=== PATIENT | male | born 1975 | race Caucasian/White ===

== ENCOUNTER 2020-09-27 16:29 | Observation (INO) ==
[2020-09-27] MEDS ORDERED: ASPIRIN CHEW 324 MG PO STA (17:04)
[2020-09-27] MEDS ORDERED: METOPROLOL TARTRATE 1 MG/ML VIAL IV STA (17:04)
--- NOTE | 2020-09-27 17:12 | Emergency Department Note ---
Impression & Plan Precordial chest pain, Exertional chest pain, Abnormal ECG ED Provider Note NAME: ERWIN DONAHUE AGE: 45 SEX: M : 1975 ARRIVES VIA: Walk-In INFORMANT: [Patient] ED PROVIDER(S): [Guillermo Funez MD] CHIEF COMPLAINT: Chest pain HISTORY OF PRESENT ILLNESS: Patient is a 45-year-old male presents to the ED with complaints of some chest pain earlier today. Patient states that around 5 hours ago he developed 2/10 central chest pain without radiation. He was sitting at the time. The pain lasted about 20 to 30 minutes and then self resolved. He was not short of breath, there was no sweating or nausea. Patient went to his doctor's office today for a BP check. His BP was elevated. When he mentioned the chest pain, an EKG was done that showed some mild ST elevation over several leads. He was sent to the ED for work-up. He currently does not have any chest pain. Patient states that over the last 6 months he has noticed some left lateral chest discomfort with exertion. The pain resolves with rest and lasts maybe 5 or 10 minutes. Pain is rated as a 5/10. He is not sweaty with it. There is no nausea. He does feel lightheaded with the pain though. The patient has never had a diagnosis of coronary disease. He has never had his heart worked up. He quit smoking 1 year ago but had smoked 20+ years prior to quitting. He has a family history of early heart disease. REVIEW OF SYSTEMS: See HPI for pertinent positives and negatives. A total of ten systems were reviewed and were otherwise negative. PMHx/PSHx: See Below SOCIAL HISTORY: See Below. PHYSICAL EXAM: GENERAL: Patient is in no acute distress. HEENT: No acute trauma, normocephalic atraumatic, mucous membranes moist, no nasal congestion, no scleral icterus. NECK: No stridor, no adenopathy, no meningismus, trachea is midline. LUNGS: Clear to auscultation bilaterally, no wheeze, no rhonchi, breath sounds equal. HEART: Very subtle systolic murmur heard best at the right sternal border. Regular rate and rhythm. Chest: Nontender chest wall. ABDOMEN: Soft, nontender, bowel sounds positive, no hernias, no peritonitis. EXTREMITIES: No cyanosis or edema, full range of motion of all the joints without pain or difficulty, no signs for acute trauma. NEUROLOGIC: Oriented x 3, no acute motor or sensory deficits, no focal weakness. SKIN: No rash, no jaundice, no diaphoresis. DIFFERENTIAL DIAGNOSIS: Cardiac ischemia, aortic dissection, pulmonary embolism, pneumothorax, pneumonia, pericarditis, myocarditis, esophageal rupture, GERD, cholecystitis, pancreatitis, musculoskeletal, as well as other pathologies. EMERGENCY DEPARTMENT COURSE/PROCEDURES: ECG: Indication was chest pain. The ECG shows a normal sinus rhythm with a rate of 70. There is some subtle ST elevation in a few of the anterior leads however, this has the appearance of potential early repole. There are are no PVCs. The QTc is 401. Compared to an ECG done earlier today at his doctors office, the ST elevations appear improved and are less diffuse. Continuous Cardiac Monitoring: An order was placed for continuous cardiac monitoring. The monitor shows a rate of 82 with normal sinus rhythm. MEDICAL DECISION MAKING: There is no leukocytosis or concerning anemia. There is a normal platelet count. No significant electrolyte abnormality or kidney failure. No worrisome liver enzyme elevation. No evidence for pancreatitis. ECG shows a sinus rhythm, there were some subtle ST elevations thought more consistent with early repolarization than ischemia. Cardiac enzyme testing x1 is not consistent with acute cardiac injury. Chest film does not show pneumonia, mediastinal widening or pneumothorax. On exam, the patient was not toxic, he was not febrile. He was not having any chest pain. Of note, Covid testing returned negative. The patient received oral aspirin for cardioprotective purposes. He was given IV Lopressor to help control the heart rate and to help control his blood pressure. The patient is currently resting comfortably. I did discuss his case with cardiology. Hospitalization, enzyme trending and potential stress testing was recommended. The patient does have some cardiac risk factors. His heart score is around a 4 making him a moderate risk for cardiac complications. I spoke to the patient, I talked to case management. The on-call hospitalist has been consulted. Past Med/Surg History Medical History Depression History of alcohol abuse History of smoking Hypertension Family History Mother Myocardial infarction passed at 56 Father Myocardial infarction first at age 45, multiple CT and passed at 58 Diabetes Hypertension Heart disease CT with CHF Grandmother Cancer brain cancer, unclear ddx Aneurysm Uncle Colorectal cancer Other Coronary heart disease Denies family history of Asthma Social History Smoking Status: Former smoker Tobacco Type: Cigarettes Years Smoked: 20; Cigarettes Per Day: 60; Hx Alcohol Use: No Hx Substance Use: No Preferred Language: Irish Communication Ability: Effective Job Estimator Required: No Beliefs That Will Affect Care: None Current Living Situation: Family Feels Safe at Home: Yes caffeine: Yes (4 pots coffee daily) Assistive Devices: None Allergies Allergies Allergy/AdvReac Type Severity Reaction Status Date / Time Opioids - Morphine Analogues AdvReac Unknown Do not Verified 09/27/20 19:18 give per pt [id number] Allergy Unknown Unknown Uncoded 09/27/20 17:51 Home Meds Home Medications Medication Instructions Recorded Confirmed clonidine HCl 0.1 mg PO DAILY@199909/27/20 09/27/20 lisinopril 20 mg PO QAM 09/27/20 09/27/20 nicotine (polacrilex) 2 mg PO DIRECTED 09/27/20 09/27/20 sertraline 50 mg PO QAM 09/27/20 09/27/20 Previous Rx's Medication Instructions Recorded amlodipine 5 mg PO DAILY #30 tab 09/28/20 pantoprazole [Protonix] 40 mg PO QAM #30 tab 09/28/20 Results & Data (ED) Vital Signs Vital Signs - 24 hr 09/27/20 16:32 09/27/20 16:40 09/27/20 16:50 Temperature 36.8 C Temperature Source Temporal Artery Scan Pulse Rate 78 65 Pulse Rate [Apical] 71 Pulse Rate from SpO2 Sensor Pulse Rhythm Regular Pulse Rhythm [Apical] Pulse Strength [Apical] Respiratory Rate 18 18 19 Respiratory Effort / Characteristics Non-Labored Spontaneous Respiratory Depth Normal Respiratory Pattern Regular Blood Pressure 143/95 H Blood Pressure [Left Arm] 146/89 H Blood Pressure Mean 111 Blood Pressure Mean [Left Arm] 108 Blood Pressure Position Sitting Blood Pressure Position [Left Arm] Pulse Oximetry 96 97 98 Oxygen Delivery Method Room Air Room Air Room Air Sepsis Recent Fever Within 48 Hours No Sepsis New/Unexplained Change in Mental Status N/A Sepsis Action Taken by Nursing No Action Required 09/27/20 18:30 09/27/20 18:36 09/27/20 19:01 Temperature Temperature Source Pulse Rate Pulse Rate [Apical] 75 Pulse Rate from SpO2 Sensor 58 L 60 Pulse Rhythm Pulse Rhythm [Apical] Regular Pulse Strength [Apical] Normal Respiratory Rate 19 Respiratory Effort / Characteristics Non-Labored Spontaneous Respiratory Depth Normal Respiratory Pattern Blood Pressure 128/89 141/86 H Blood Pressure [Left Arm] 128/89 Blood Pressure Mean 102 104 Blood Pressure Mean [Left Arm] 102 Blood Pressure Position Blood Pressure Position [Left Arm] Lying Pulse Oximetry 97 97 98 Oxygen Delivery Method Room Air Room Air Room Air Sepsis Recent Fever Within 48 Hours Sepsis New/Unexplained Change in Mental Status Sepsis Action Taken by Nursing 09/27/20 19:02 09/27/20 19:30 09/27/20 19:40 Temperature Temperature Source Pulse Rate 73 Pulse Rate [Apical] Pulse Rate from SpO2 Sensor 60 Pulse Rhythm Pulse Rhythm [Apical] Pulse Strength [Apical] Respiratory Rate 17 Respiratory Effort / Characteristics Respiratory Depth Respiratory Pattern Blood Pressure 143/89 H Blood Pressure [Left Arm] Blood Pressure Mean 107 Blood Pressure Mean [Left Arm] Blood Pressure Position Blood Pressure Position [Left Arm] Pulse Oximetry 97 95 Oxygen Delivery Method Room Air Sepsis Recent Fever Within 48 Hours Sepsis New/Unexplained Change in Mental Status Sepsis Action Taken by Nursing 09/27/20 20:00 Temperature Temperature Source Pulse Rate 71 Pulse Rate [Apical] Pulse Rate from SpO2 Sensor Pulse Rhythm Pulse Rhythm [Apical] Pulse Strength [Apical] Respiratory Rate 18 Respiratory Effort / Characteristics Respiratory Depth Respiratory Pattern Blood Pressure 123/73 Blood Pressure [Left Arm] Blood Pressure Mean 89 Blood Pressure Mean [Left Arm] Blood Pressure Position Blood Pressure Position [Left Arm] Pulse Oximetry Oxygen Delivery Method Sepsis Recent Fever Within 48 Hours Sepsis New/Unexplained Change in Mental Status Sepsis Action Taken by Assisted Medications Current Medication List: was personally reviewed by me Laboratory Data Attestation: I reviewed the patient's lab results. Result diagrams: 09/28/20 05:47 09/28/20 05:47 Lab Results 09/27/20 09/27/20 09/27/20 Range/Units 16:46 16:46 19:38 WBC 6.44 (4.8-10.8) K/uL RBC 4.99 (4.7-6.1) M/uL Hgb 15.7 (14.0-18.0) g/dL Hct 43.9 (42-52) % MCV 88.0 (80-100) fL MCH 31.5 (25-34) pg MCHC 35.8 (32-36) g/dL RDW Std Deviation 41.8 (36.4-46.3) fL RDW Coeff of Filipe 13.0 (11.5-14.5) % Plt Count 243 (130-400) K/uL MPV 10.8 H (7.4-10.4) fL Immature Gran % (Auto) 0.3 % Neut % (Auto) 62.9 % Lymph % (Auto) 25.3 % [place] % (Auto) 9.5 % Eos % (Auto) 1.7 % Baso % (Auto) 0.3 % Neut # (Auto) 4.05 (1.4-6.5) K/uL Lymph # (Auto) 1.63 (1.2-3.4) K/uL [place] # (Auto) 0.61 H (0.11-0.59) K/uL Eos # (Auto) 0.11 (0-0.5) K/uL Baso # (Auto) 0.02 (0-0.2) K/uL Immature Gran # (Auto) 0.02 (0.00-0.02) K/uL Sodium 137 (136-145) mmol/L Potassium 3.9 (3.5-5.1) mmol/L Chloride 105 (98-107) mmol/L Carbon Dioxide 25 (21-32) mmol/L Anion Gap 7.0 (3-11) BUN 12 (7-18) mg/dl Creatinine 0.82 (0.6-1.4) mg/dl Est Cr Clr Drug Dosing 107.5 ml/min Est GFR ( Amer) 124.6 Est GFR (Non-Af Amer) 107.5 BUN/Creatinine Ratio 15.0 (10-20) Glucose 89 (70-99) mg/dl Calcium 9.1 (8.5-10.1) mg/dl Magnesium 2.1 (1.8-2.4) mg/dl Total Bilirubin 0.6 (0.2-1) mg/dl AST 19 (15-37) U/L ALT 46 (12-78) U/L Alkaline Phosphatase 111 (45-117) U/L Troponin I < 0.015 (0-0.045) ng/ml Total Protein 7.8 (6.4-8.2) gm/dl Albumin 4.3 (3.4-5.0) gm/dl Globulin 3.5 (2.5-4.0) gm/dl Albumin/Globulin Ratio 1.2 (0.9-2) Lipase 103 (73-393) U/L COVID-19 Eval [email or web address] SARS-CoV-2, RNA, NAAT (NEGATIVE) 09/27/20 Range/Units 19:38 WBC (4.8-10.8) K/uL RBC (4.7-6.1) M/uL Hgb (14.0-18.0) g/dL Hct (42-52) % MCV (80-100) fL MCH (25-34) pg MCHC (32-36) g/dL RDW Std Deviation (36.4-46.3) fL RDW Coeff of Filipe (11.5-14.5) % Plt Count (130-400) K/uL MPV (7.4-10.4) fL Immature Gran % (Auto) % Neut % (Auto) % Lymph % (Auto) % [place] % (Auto) % Eos % (Auto) % Baso % (Auto) % Neut # (Auto) (1.4-6.5) K/uL Lymph # (Auto) (1.2-3.4) K/uL [place] # (Auto) (0.11-0.59) K/uL Eos # (Auto) (0-0.5) K/uL Baso # (Auto) (0-0.2) K/uL Immature Gran # (Auto) (0.00-0.02) K/uL Sodium (136-145) mmol/L Potassium (3.5-5.1) mmol/L Chloride (98-107) mmol/L Carbon Dioxide (21-32) mmol/L Anion Gap (3-11) BUN (7-18) mg/dl Creatinine (0.6-1.4) mg/dl Est Cr Clr Drug Dosing ml/min Est GFR ( Amer) Est GFR (Non-Af Amer) BUN/Creatinine Ratio (10-20) Glucose (70-99) mg/dl Calcium (8.5-10.1) mg/dl Magnesium (1.8-2.4) mg/dl Total Bilirubin (0.2-1) mg/dl AST (15-37) U/L ALT (12-78) U/L Alkaline Phosphatase (45-117) U/L Troponin I (0-0.045) ng/ml Total Protein (6.4-8.2) gm/dl Albumin (3.4-5.0) gm/dl Globulin (2.5-4.0) gm/dl Albumin/Globulin Ratio (0.9-2) Lipase (73-393) U/L COVID-19 Eval Order SARS-CoV-2, RNA, NAAT NEGATIVE (NEGATIVE) Administered Medications Discontinued Medications Amlodipine Besylate (Amlodipine Besylate 5 Mg Tab) 2.5 mg PO QAM COUNT INCLUDES THE [facility] Stop: 10/28/20 08:59 Last Admin: 09/28/20 09:16 Dose: 2.5 mg Documented by: [id number] Aspirin (Aspirin Chew 324 Mg) 324 mg PO NOW STA Stop: 09/27/20 17:05 Last Admin: 09/27/20 17:21 Dose: 324 mg Documented by: [id number] Aspirin (Aspirin 81 Mg Ectab) 81 mg PO NOW STA Stop: 09/27/20 21:11 Last Admin: 09/27/20 22:05 Dose: 81 mg Documented by: [id number] Clonidine HCl (Clonidine Hcl 0.1 Mg Tab) 0.1 mg PO DAILY@1999 COUNT INCLUDES THE [facility] Stop: 10/27/20 21:27 Last Admin: 09/27/20 21:52 Dose: 0.1 mg Documented by: [id number] Heparin Sodium (Porcine) (Heparin Sod 5,000 Unit/0.5 Ml Vial) 5,000 units SQ Q8 COUNT INCLUDES THE [facility] Stop: 10/27/20 21:59 Last Admin: 09/28/20 06:03 Dose: 5,000 units Documented by: [id number] Admin: 09/27/20 21:52 Dose: 5,000 units Documented by: [id number] Sodium Chloride (Nss 1000ml) 1,000 mls @ 100 mls/hr IV .Q10H COUNT INCLUDES THE [facility] Stop: 10/27/20 21:27 Last Admin: 09/28/20 09:53 Dose: Not Given Documented by: [id number] Admin: 09/28/20 09:19 Dose: Not Given Documented by: [id number] Admin: 09/27/20 21:48 Dose: 100 mls/hr Documented by: [id number] Metoprolol Tartrate (Metoprolol Tartrate 1 Mg/Ml Vial) 5 mg IV NOW STA Stop: 09/27/20 17:05 Last Admin: 09/27/20 17:21 Dose: 5 mg Documented by: [id number] Sertraline HCl (Sertraline Hcl 50 Mg Tablet) [facility] [place] Stop: 10/28/20 08:59 Last Admin: 09/28/20 09:16 Dose: 50 mg Documented by: [id number] Imaging Data Radiologist's Impression: XR chest 1V portable HISTORY: Atypical Chest Pain COMPARISON: Chest and left rib series 08/13/2014. FINDINGS: The lungs are clear. Cardiac silhouette is normal in size. No pleural effusions. No pneumothorax. IMPRESSION: No acute process. Discharge Plan Visit Data Chief Complaint: Chest Pain Stated Complaint: ABNORMAL EKG; CHEST PAIN ED Provider: Guillermo Funez Discharge Problem: Precordial chest pain, Exertional chest pain, Abnormal ECG Patient Disposition: Admitted As Inpatient Condition: Good Discharge Instructions Interventions: ED Discharge Assessment Last Done: 09/27/20 20:48
[2020-09-27 17:25] LABS: Basophils # (auto) 0.02 K/uL (0-0.2); Basophils % (auto) 0.3 %; Eosinophils # (auto) 0.11 K/uL (0-0.5); Eosinophils % (auto) 1.7 %; Hematocrit (blood only) 43.9 % (42-52); Hemoglobin 15.7 g/dL (14.0-18.0); Immature Granulocytes # (auto) 0.02 K/uL (0.00-0.02); Immature Granulocytes % (auto) 0.3 %; Lymphocytes # (auto) 1.63 K/uL (1.2-3.4); Lymphocytes % (auto) 25.3 %; Mean Corpuscular Hemoglobin 31.5 pg (25-34); Mean Corpuscular Hgb Conc 35.8 g/dL (32-36); Mean Platelet Volume 10.8 fL (7.4-10.4); Monocytes # (auto) 0.61 K/uL (0.11-0.59); Monocytes % (auto) 9.5 %; Neutrophils # (auto) 4.05 K/uL (1.4-6.5); Neutrophils % (auto) 62.9 %; Platelet Count 243 K/uL (130-400); RDW Standard Deviation 41.8 fL (36.4-46.3); Red Blood Count 4.99 M/uL (4.7-6.1); White Blood Count 6.44 K/uL (4.8-10.8)
--- NOTE | 2020-09-27 17:30 | XRay Report ---
XR chest 1V portable HISTORY: Atypical Chest Pain COMPARISON: Chest and left rib series 08/13/2014. FINDINGS: The lungs are clear. Cardiac silhouette is normal in size. No pleural effusions. No pneumot horax. IMPRESSION: No acute process. ACT 112: Negative or not required by law. Electronically signed by: Tor Elise M.D. 09/27/2020 5:29 PM
[2020-09-27 17:42] LABS: Alanine Aminotransferase 46 U/L (12-78); Albumin Level 4.3 gm/dl (3.4-5.0); Aspartate Aminotransferase 19 U/L (15-37); Blood Urea Nitrogen 12 mg/dl (7-18); Calcium 9.1 mg/dl (8.5-10.1); Carbon Dioxide 25 mmol/L (21-32); Chloride 105 mmol/L (98-107); Creatinine Clr Calc Pharmacy 107.5 ml/min; Est GFR (African American) 124.6; Est GFR (Non-African American) 107.5; Glucose 89 mg/dl (70-99); Lipase 103 U/L (73-393); Magnesium 2.1 mg/dl (1.8-2.4); Potassium 3.9 mmol/L (3.5-5.1); Sodium 137 mmol/L (136-145)
[2020-09-27 17:47] LABS: Albumin Globulin Ratio 1.2 (0.9-2); Alkaline Phosphatase 111 U/L (45-117); Bilirubin,Total 0.6 mg/dl (0.2-1); Globulin 3.5 gm/dl (2.5-4.0); Total Protein 7.8 gm/dl (6.4-8.2); Troponin I < 0.015 ng/ml (0-0.045)
--- NOTE | 2020-09-27 19:25 | History & Physical Report ---
Date of Service September 27, 2020 Assessment & Plan (1) Left-sided chest wall pain: Collins is a 45yo M with a PMHx of HTN, 81-fzza-ihxk smoking history, and FHx of early VA in his mother and father who presents with 1 day of worsened chest pain at rest. 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 Pt reports he was feeling otherwise well until about noon today when he developed "More discomfort than anything." Prior to this had intermittent Chest pain in his L sharp and intermitent once or twice a week, sharp, went away in 5 or 10 minutes and 'I'm always sweating but never more than normal' and no shortness of breath. This episode was different; started 12:00pm today and lasted about a half hour and was more a discomfort/pressure/ache which was 1/10 in intensity and which did not radiate to the shoulder or aw but was associated with lightheadedness. When away on his own after ~30 minutes or so and Collins just felt a little tired. BP when this happened was 140s/90s. No prior episodes of chest discomfort at rest before. reports he marquez once and a while have sharp L chest pain in his side going up stairs, but the chest pain in the center chest is new. He contacted his PCP and had an outpt EKG and was referred to the ER for further evaluation. MedHx: HTN. Allergies: NKDA, but Does not want narcotics of any kind for pain, worried about FHX: updated Social: Former smoker, quit 1 year ago. Smoked 3ppd x20 years prior. 'Drank like a fish a case a day" stopped 1 year ago. No alcohol at all since then. Denies recreational drug use. Drinks 4 pots of coffee every day Allergies Allergy/AdvReac Type Severity Reaction Status Date / Time Opioids - Morphine Analogues AdvReac Unknown Do not Verified 09/27/20 19:18 give per pt [id number] Allergy Unknown Unknown Uncoded 09/27/20 17:51 Home Medications Medication Instructions Recorded Confirmed Type amlodipine 2.5 mg PO QAM 09/27/20 09/27/20 History clonidine HCl [Catapres] 0.1 mg PO DAILY@199909/27/20 09/27/20 History lisinopril 20 mg PO QAM 09/27/20 09/27/20 History nicotine (polacrilex) 2 mg PO DIRECTED 09/27/20 09/27/20 History sertraline 50 mg PO QAM 09/27/20 09/27/20 History Past Med/Surg History Medical History (Updated 09/27/20 @ 20:57 by Nel Martinez MD) Depression History of alcohol abuse History of smoking Hypertension Family History Mother Myocardial infarction passed at 56 Father Myocardial infarction first at age 45, multiple VA and passed at 58 Diabetes Hypertension Heart disease VA with CHF Grandmother Cancer brain cancer, unclear ddx Aneurysm Uncle Colorectal cancer Other Coronary heart disease Denies family history of Asthma Social History (Updated 09/27/20 @ 21:01 by Nel Martinez MD) Smoking Status: Former smoker Tobacco Type: Cigarettes Years Smoked: 20; Cigarettes Per Day: 60; Hx Alcohol Use: No Hx Substance Use: No Preferred Language: Greenlandic Communication Ability: Effective Pie Maker Machine Required: No Beliefs That Will Affect Care: None Current Living Situation: Family Feels Safe at Home: Yes Safety Concerns: Feels Safe At This Time caffeine: Yes (4 pots coffee daily) Assistive Devices: Glasses Review of Systems Review of Systems: Constitutional: Denies fever, chills, malaise, weight change Eyes: Denies vision change ENT: Denies ear pain, sore throat, sinus pain Cardiovascular: See HPI Respiratory: Denies shortness of breath, cough, sputum production, difficulty breathing Gastrointestinal: Denies abdominal pain, nausea, vomiting, constipation. Endorses intermittent diarrhea after he quit drinking. Genitourinary: Denies pain with urination, urinary urgency, urinary frequency Musculoskeletal: Denies weakness, muscle aches/pain, joint aches/pain Integumentary:Denies rash, lesions, bruising Neurological: Denies headache, numbness, tingling, focal weakness Physical Exam Physical Exam: General: A&Ox3. NAD. Cooperative. HEENT: Atraumatic, normocephalic. PERLAA. Visual acuity intact. EoM intact. Pulm: CTAB A&P. -wheezes, -rales, -rhonchi. Symmetrical chest rise. No increase work of breathing. No respiratory distress. Cardiac: RRR, -mrg. Radial pulses intact and symmetrical. No JVD. Abdominal: Nontender, nondistended, soft. BS present. Ext: No pedal edema. No extremity swelling. Water Meter Reader strength and ankle dorsiflexion/plantarfexion 5/5 bilater. Results & Data Results & Data ([facility]) Vital Signs (Past 12 Hours) Vital Signs Temp Pulse Pulse Resp BP BP Pulse Ox 09/27/20 18:36 75 19 128/89 97 09/27/20 16:50 65 19 98 09/27/20 16:40 71 18 146/89 H 97 09/27/20 16:32 36.8 C 78 18 143/95 H 96 Laboratory Results 09/27/20 09/27/20 09/27/20 Range/Units 19:38 19:38 16:46 WBC (4.8-10.8) K/uL RBC (4.7-6.1) M/uL Hgb (14.0-18.0) g/dL Hct (42-52) % MCV (80-100) fL MCH (25-34) pg MCHC (32-36) g/dL RDW Std Deviation (36.4-46.3) fL RDW Coeff of Filipe (11.5-14.5) % Plt Count (130-400) K/uL MPV (7.4-10.4) fL Immature Gran % (Auto) % Neut % (Auto) % Lymph % (Auto) % Campbell % (Auto) % Eos % (Auto) % Baso % (Auto) % Neut # (Auto) (1.4-6.5) K/uL Lymph # (Auto) (1.2-3.4) K/uL Campbell # (Auto) (0.11-0.59) K/uL Eos # (Auto) (0-0.5) K/uL Baso # (Auto) (0-0.2) K/uL Immature Gran # (Auto) (0.00-0.02) K/uL Sodium 137 (136-145) mmol/L Potassium 3.9 (3.5-5.1) mmol/L Chloride 105 (98-107) mmol/L Carbon Dioxide 25 (21-32) mmol/L Anion Gap 7.0 (3-11) BUN 12 (7-18) mg/dl Creatinine 0.82 (0.6-1.4) mg/dl Est Cr Clr Drug Dosing 107.5 ml/min Est GFR ( Amer) 124.6 Est GFR (Non-Af Amer) 107.5 BUN/Creatinine Ratio 15.0 (10-20) Glucose 89 (70-99) mg/dl Calcium 9.1 (8.5-10.1) mg/dl Magnesium 2.1 (1.8-2.4) mg/dl Total Bilirubin 0.6 (0.2-1) mg/dl AST 19 (15-37) U/L ALT 46 (12-78) U/L Alkaline Phosphatase 111 (45-117) U/L Troponin I < 0.015 (0-0.045) ng/ml Total Protein 7.8 (6.4-8.2) gm/dl Albumin 4.3 (3.4-5.0) gm/dl Globulin 3.5 (2.5-4.0) gm/dl Albumin/Globulin Ratio 1.2 (0.9-2) Lipase 103 (73-393) U/L COVID-19 Eval Order Covid19 IDNow atMPAC SARS-CoV-2, RNA, NAAT NEGATIVE (NEGATIVE) 09/27/20 Range/Units 16:46 WBC 6.44 (4.8-10.8) K/uL RBC 4.99 (4.7-6.1) M/uL Hgb 15.7 (14.0-18.0) g/dL Hct 43.9 (42-52) % MCV 88.0 (80-100) fL MCH 31.5 (25-34) pg MCHC 35.8 (32-36) g/dL RDW Std Deviation 41.8 (36.4-46.3) fL RDW Coeff of Filipe 13.0 (11.5-14.5) % Plt Count 243 (130-400) K/uL MPV 10.8 H (7.4-10.4) fL Immature Gran % (Auto) 0.3 % Neut % (Auto) 62.9 % Lymph % (Auto) 25.3 % Campbell % (Auto) 9.5 % Eos % (Auto) 1.7 % Baso % (Auto) 0.3 % Neut # (Auto) 4.05 (1.4-6.5) K/uL Lymph # (Auto) 1.63 (1.2-3.4) K/uL Campbell # (Auto) 0.61 H (0.11-0.59) K/uL Eos # (Auto) 0.11 (0-0.5) K/uL Baso # (Auto) 0.02 (0-0.2) K/uL Immature Gran # (Auto) 0.02 (0.00-0.02) K/uL Sodium (136-145) mmol/L Potassium (3.5-5.1) mmol/L Chloride (98-107) mmol/L Carbon Dioxide (21-32) mmol/L Anion Gap (3-11) BUN (7-18) mg/dl Creatinine (0.6-1.4) mg/dl Est Cr Clr Drug Dosing ml/min Est GFR ( Amer) Est GFR (Non-Af Amer) BUN/Creatinine Ratio (10-20) Glucose (70-99) mg/dl Calcium (8.5-10.1) mg/dl Magnesium (1.8-2.4) mg/dl Total Bilirubin (0.2-1) mg/dl AST (15-37) U/L ALT (12-78) U/L Alkaline Phosphatase (45-117) U/L Troponin I (0-0.045) ng/ml Total Protein (6.4-8.2) gm/dl Albumin (3.4-5.0) gm/dl Globulin (2.5-4.0) gm/dl Albumin/Globulin Ratio (0.9-2) Lipase (73-393) U/L COVID-19 Eval Order SARS-CoV-2, RNA, NAAT (NEGATIVE) Diagnostic Findings XR chest 1V portable HISTORY: Atypical Chest Pain COMPARISON: Chest and left rib series 08/13/2014. FINDINGS: The lungs are clear. Cardiac silhouette is normal in size. No pleural effusions. No pneumothorax. IMPRESSION: No acute process. ECG Additional Comments: Normal sinus rhythm, no ischemic changes Supervising Physician Co-Signing Physician Notes I personally examined the patient and verified all campos points of history and exam, discussed case, and agree with decision making with Dr. Dc with the following additions/exceptions: This patient is a 45-year-old male with history of HTN, alcohol abuse, 24-cmaz-xjvi smoking history, and depression who presents to the ER with acute onset of substernal chest pressure lasting 30 minutes, nonradiating, associate with lightheadedness, noted excessive diaphoresis over his usual, that went away on its own. He has had an ongoing 2-month history of left-sided sharp pain with exertion that would go away with rest but this was different today. He reports he drinks 4 pots of coffee daily since he quit drinking 30 beers a day about a year ago. He gets occasional heartburn but today's episode did not feel like heartburn. History and ROS reviewed as above Vitals reviewed Gen: AAOx3, NAD HEENT: Anicteric sclerae, EOMI CV: RRR no mgr nl S1S2 Pulm: CTAB no wcr Abd: +BS soft NT ND no masses or hernias Ext: No edema, no calf tenderness Skin: No rashes, warm/dry Neuro: Full strength throughout Chest x-ray reviewed Laboratory values reviewed ECG reviewed 45-year-old male here with somewhat atypical chest pain, but with significant risk factors of 38-lihn-vktw smoking history, positive family history of early VA in both his mother and his father, and hypertension, needs further evaluation for cardiac risk stratification. -Admit to telemetry unit -Trend serial troponin -Plan for stress echocardiogram in the morning if troponins are normal -Needs improved blood pressure control-clonidine it seems is being used because of his history of substance abuse, however may be having rebound hypertension from such -Consider addition of metoprolol Of note, patient is extremely anxious about not being able to drink his usual 4 pots of coffee tomorrow if he is n.p.o. for procedure-if at all possible, push for stress echocardiogram to get performed early in the morning. Resident Activity Tracking Resident Involvement: Resident Care Provided Care Provided: Adult [facility] Medicine
[2020-09-27] MEDS ORDERED: ASPIRIN 81 MG ECTAB PO STA (21:10)
--- NOTE | 2020-09-27 21:16 | Billing Data ---
Date of Service September 27, 2020 Coding Level of Care Code 79613 OBS Care - Level 3
[2020-09-27] MEDS ORDERED: METOPROLOL TARTRATE 1 MG/ML VIAL IV PRN (21:28)
[2020-09-27] MEDS ORDERED: cloNIDine HCL 0.1 MG TAB PO SCH (21:28)
[2020-09-27] MEDS ORDERED: ACETAMINOPHEN 325 MG TAB PO PRN (21:28)
[2020-09-27] MEDS: SODIUM CHLORIDE 0.9% 1000ML 1,000 ML IV SCH (21:48)
[2020-09-27] MEDS: HEPARIN SOD 5,000 UNIT/0.5 ML VIAL SQ SCH (21:52)
[2020-09-28] MEDS: HEPARIN SOD 5,000 UNIT/0.5 ML VIAL SQ SCH (06:03)
[2020-09-28 06:06] LABS: Basophils # (auto) 0.01 K/uL (0-0.2); Basophils % (auto) 0.2 %; Eosinophils # (auto) 0.17 K/uL (0-0.5); Eosinophils % (auto) 3.6 %; Hematocrit (blood only) 42.9 % (42-52); Hemoglobin 14.8 g/dL (14.0-18.0); Immature Granulocytes # (auto) 0.02 K/uL (0.00-0.02); Immature Granulocytes % (auto) 0.4 %; Lymphocytes # (auto) 1.76 K/uL (1.2-3.4); Lymphocytes % (auto) 36.9 %; Mean Corpuscular Hemoglobin 30.7 pg (25-34); Mean Corpuscular Hgb Conc 34.5 g/dL (32-36); Mean Platelet Volume 10.6 fL (7.4-10.4); Monocytes # (auto) 0.55 K/uL (0.11-0.59); Monocytes % (auto) 11.5 %; Neutrophils # (auto) 2.26 K/uL (1.4-6.5); Neutrophils % (auto) 47.4 %; Platelet Count 223 K/uL (130-400); RDW Coefficient of Variation 13.1 % (11.5-14.5); RDW Standard Deviation 42.8 fL (36.4-46.3); Red Blood Count 4.82 M/uL (4.7-6.1); White Blood Count 4.77 K/uL (4.8-10.8)
[2020-09-28 06:43] LABS: BUN Creatinine Ratio 15.4 (10-20); Blood Urea Nitrogen 15 mg/dl (7-18); Carbon Dioxide 28 mmol/L (21-32); Chloride 108 mmol/L (98-107); Creatinine Clr Calc Pharmacy 88.1 ml/min; Est GFR (African American) 105.6; Est GFR (Non-African American) 91.1; Glucose 107 mg/dl (70-99); Potassium 4.2 mmol/L (3.5-5.1); Sodium 138 mmol/L (136-145)
[2020-09-28 06:46] LABS: Chol HDL Ratio 5; Cholesterol 199 mg/dl (0-200); HDL Cholesterol 40 mg/dl; LDL Cholesterol Calculated 124 mg/dl; Triglycerides 176 mg/dl (0-150); VLDL Cholesterol 35 mg/dl
[2020-09-28 06:48] LABS: Troponin I < 0.015 ng/ml (0-0.045)
[2020-09-28] MEDS ORDERED: amLODIPine BESYLATE 5 MG TAB PO SCH (09:00)
[2020-09-28] MEDS ORDERED: SERTRALINE HCL 50 MG TABLET PO SCH (09:00)
[2020-09-28] MEDS: SODIUM CHLORIDE 0.9% 1000ML 1,000 ML IV SCH ×2 (09:19→09:53)
--- NOTE | 2020-09-28 10:31 | Discharge Summary ---
Date of Service date of admission - September 27, 2020 date of discharge - September 28, 2020 Admission HPI Per Admitting Provider Mr Dolan is a 45yo M with a PMHx of HTN and FHx of early UT in his mother and father who presents with 1 day of worsened chest pain at rest. Pt reports he was feeling otherwise well until about noon today when he developed "More discomfort than anything." Prior to this had intermittent Chest pain in his L sharp and intermitent once or twice a week, sharp, went away in 5 or 10 minutes and 'I'm always sweating but never more than normal' and no shortness of breath. This episode was different; started 12:00pm today and lasted about a half hour and was more a discomfort/pressure/ache which was 1/10 in intensity and which did not radiate to the shoulder or aw but was associated with lightheadedness. Went away on his own after ~30 minutes or so and he felt a little tired. BP when this happened was 140s/90s. No prior episodes of chest discomfort at rest before. reports he marquez once and a while have sharp L chest pain in his side going up stairs, but the chest pain in the center chest is new. He contacted his PCP and had an outpt EKG and was referred to the ER for further evaluation. MedHx: HTN. Allergies: NKDA, but Does not want narcotics of any kind for pain, worried about FHX: updated Social: Former smoker, quit 1 year ago. Smoked 3ppd x20 years prior. 'Drank like a fish a case a day" stopped 1 year ago. No alcohol at all since then. Denies recreational drug use. Drinks 4 pots of coffee every day. Principal Diagnosis chest pain, no ACS; negative stress test Discharge Exam Constitutional well developed and well nourished; no acute distress and no altered mental status ENMT external ear and nose normal, oropharynx normal Respiratory normal respiratory effort, lungs clear to auscultation Cardiovascular Rate/Rhythm: regular rate and regular rhythm Heart Sounds: normal S1 and normal S2; no murmur Vessels: posterior tibial pulses present and dorsalis pedis pulses present; no JVD Extremities: no edema Gastrointestinal (Abdomen) normal bowel sounds, soft, nontender, no hepatosplenomegaly Psychiatric Orientation: alert and oriented x 3 Affect: + elated affect Discharge Data Allergies Allergy/AdvReac Type Severity Reaction Status Date / Time Opioids - Morphine Analogues AdvReac Unknown Do not Verified 09/27/20 19:18 give per pt [id number] Allergy Unknown Unknown Uncoded 09/27/20 17:51 Consultations [facility] Cardiology - Dav Frye MD Procedures Performed Exercise stress echo: * no exercise induced ischemia * normal LV function Hospital Course (1) Precordial chest pain: Troponins were negative x 3. Telemetry was normal while hospitalized. EKGs were wnl. He underwent exercise stress echocardiogram and this was negative for inducible ischemic changes. Although he has CAD risk factors his presenting chest pain was likely non- cardiac. In light of severe caffeine dependence (4-6 pots of regular coffee/day) it was suspected that his symptoms were GI in origin. For that reason he was placed on once daily PPI for 1 month and urged to cut his caffeine consumption drastically. He was also asked to speak with his PCP about GI consultation as an outpatient. (2) Essential (primary) hypertension: Most BPs were elevated while hospitalized. Thus, his amlodipine was increased to 5mg daily. He will continue on his other BP meds as previous. 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 I discussed dangers of this with him including uncontrolled HTN, peptic ulcer disease/GERD risk, etc. Highly encouraged to cut his consumption back drastically. Total Time Total Time Spent Total Time Spent (In Minutes): 25 Total Time Includes: Examination of the Patient, Discharge Planning, Medication Reconciliation and Communication With Other Providers Discharge Plan Discharge Items Patient Disposition: Home - Self-Care Reason For Visit: ABNORMAL EKG; CHEST PAIN Discharge Diagnosis: chest pain - negative stress test, no evidence of heart attack. chest pain unlikely to be from your heart. ?reflux disease? other cause? Condition on Discharge: Good Activity: Resume your previous activity Non-emergency contact: Primary Care Provider Call non-emergency contact if: you have any medication questions, your symptoms worsen, your pain is not controlled, your pain is worsening and your pain is concerning for you Follow-up/Referrals: Mili Wood CRNP [Primary Care Provider] - (keep your scheduled follow-up appointment with Ms Wood in 2 weeks) Dietitian Info: please try to limit your caffeine (coffee) intake Diet: Heart Healthy Addtl Attending Provider Instructions: Mr Dolan, You were admitted to the hospital for chest discomforts. Your EKG, blood work for the heart ("troponins"), and stress test were all normal. There was no evidence of heart attack. Putting all the information/tests together we are >90% certain that the discomfort was not heart-related. With that said occasionally stress tests give us false negative results. There is a good chance your discomfort is reflux-related. You are likely consuming 1000-2000mg of caffeine per day which is an EXTREMELY high amount of caffeine via the coffee. This amount of caffeine will make it very hard to control your blood pressure and most certainly will increase acid production in your stomach. The latter will cause reflux disease and at times ulcers. Please do the following - 1. take pantoprazole 40mg once daily x 1 month for acid/reflux disease. Start this today. 2. please limit your coffee intake. This is so important for your general health. Ideally we work on your initial goal of 1 pot per day or less. 3. avoid spicy foods, fried foods, fast foods, eating late at night, eating large meals, and laying down after eating. 4. increase your amlodipine to 5mg once daily for your blood pressure. 5. if your symptoms persist please ask your family doctor for a referral to a GI specialist as well as [facility] Cardiology; you may need additional tests. Return to [facility] if - * you have worsening chest pain/discomforts * you have shortness of breath * you have severe abdominal pain * you see black, tarry, or coffee-ground like material in your stools * any other concerns Feel better! Dr Barnhart Pending Studies at Discharge: No Stand-Alone Forms: My [facility], Smoking Cessation Medications and DC Order Prescriptions: New pantoprazole [Protonix] 40 mg tablet,delayed release (DR/EC) 40 mg PO QAM Qty: 30 RF: 0 amlodipine 5 mg tablet 5 mg PO DAILY Qty: 30 RF: 5 Continued clonidine HCl 0.1 mg Tablet 0.1 mg PO DAILY@1999 RF: 0 nicotine (polacrilex) 2 mg gum 2 mg PO DIRECTED RF: 0 lisinopril 20 mg tablet 20 mg PO QAM RF: 0 sertraline 50 mg tablet 50 mg PO QAM RF: 0 Discharge Orders: Discharge Order (Routine); Ordered 09/28/20 Ordered By: Geoffrey Nava/Other Patient Handouts: Controlling High Blood Pressure Admission Data Admit Date/Time: 09/27/20 20:18 Attending Provider: Geoffrey Barnhart Admit Provider: Lito Dc Primary Care Provider: Mili Wood Other Providers: Nel Martinez ; Eliezer Frye Other Interventions: Discharge Summary Assessment (RN) Last Done: 09/28/20 10:32 Coding Level of Care Code 80517 OBS Care - Discharge Diagnoses Precordial chest pain R07.2 Essential (primary) hypertension I10 Caffeine dependence F15.20
--- NOTE | 2020-09-28 13:27 | XCELERA ---
[id number]
--- NOTE | 2020-09-28 14:19 | Cardiology Consultation ---
Date of Consultation September 28, 2020 Assessment & Plan (1) Precordial chest pain: (2) Hypertension: (3) Left-sided chest wall pain: Patient with multiple vascular risk factors admitted overnight, no evidence of myocardial ischemia on stress echocardiogram at high workload earlier today. Etiology of his symptoms is unclear, he does not have any baseline GI concerns. Amlodipine added for better blood pressure control, this seems reasonable. Unless he feels that he would begin to smoke again, would attempt to wean his oral nicotine off if possible. Pantoprazole started for potential reflux, also a reasonable option given lack of alternative explanation for his chest discomfort. Patient okay for discharge, if he has more characteristic or progressive chest pain certainly would revisit cardiac evaluation. At this point, there is no evidence of an acute coronary syndrome. History of Present Illness Reason for Consultation: CP Requesting Physician: Geoffrey Barnhart Attending Physician: Geoffrey Barnhart History of Present Illness 45-year-old man with family history of coronary artery disease, former smoker (quit 1 year ago), history of hypertension requiring 3 medications, who was admitted yesterday after experiencing 1/2-hour of midsternal chest pain. At baseline, he notes atypical chest pain with a sharp left-sided discomfort that lasts only seconds and resolves with rest. No epiphenomenon. Yesterday, he had a different substernal "discomfort" that lasted about 1/2- hour. No radiation or epiphenomenon. initial ECG was benign. Given his vascular risk factors and concerns about a potential cardiovascular event, he was admitted for serial enzymes overnight. Cardiac enzymes and serial ECGs were negative, he had no recurrence of chest discomfort, and he underwent a stress echocardiogram this morning. He was able to walk for 9 minutes of the Celestino protocol with no chest pain, ECG changes, or echocardiographic abnormalities. He denies any reflux or other chronic GI symptoms. At the time of my evaluation, he was comfortable. Allergies Allergy/AdvReac Type Severity Reaction Status Date / Time Opioids - Morphine Analogues AdvReac Unknown Do not Verified 09/27/20 19:18 give per pt [id number] Allergy Unknown Unknown Uncoded 09/27/20 17:51 Home Medications Medication Instructions Recorded Confirmed Type clonidine HCl 0.1 mg PO DAILY@199909/27/20 09/27/20 History lisinopril 20 mg PO QAM 09/27/20 09/27/20 History nicotine (polacrilex) 2 mg PO DIRECTED 09/27/20 09/27/20 History sertraline 50 mg PO QAM 09/27/20 09/27/20 History amlodipine 5 mg PO DAILY #30 tab 09/28/20 Rx pantoprazole [Protonix] 40 mg PO QAM #30 tab 09/28/20 Rx Patient History Medical History Depression History of alcohol abuse History of smoking Hypertension Family History Diabetes Father Coronary heart disease Aneurysm Grandmother Heart disease Father PA with CHF Myocardial infarction Mother passed at 56 Father first at age 45, multiple PA and passed at 58 Colorectal cancer Uncle Cancer Grandmother brain cancer, unclear ddx Hypertension Father Denies family history of Asthma Social History Smoking Status: Former smoker Tobacco Type: Cigarettes Years Smoked: 20; Cigarettes Per Day: 60; Hx Alcohol Use: No Hx Substance Use: No Preferred Language: [place] Communication Ability: Effective Lockstitch Collar Setter Required: No Beliefs That Will Affect Care: None Current Living Situation: Family Feels Safe at Home: Yes caffeine: Yes (4 pots coffee daily) Assistive Devices: None Physical Exam Physical Exam: Normal habitus middle-aged white male in no distress. BP normotensive. Pulse 80 bpm and regular. Skin: no ecchymoses or generalized lesions. HEENT: unremarkable. Neck: no JVD or carotid bruits. Lungs: clear and equal breath sounds bilaterally. Cardiac: regular rhythm with normal S1 and S2, no murmur or gallop. Abdomen: benign. Extremities: no edema, pulses intact. Neurologic: normal affect, nonfocal. Results & Data ([facility]) Vital Signs (Past 12 Hours) Vital Signs Temp Pulse Pulse Pulse Resp BP Pulse Ox 09/28/20 10:32 98.2 F 62 108 H 18 115/61 98 09/28/20 07:50 98.2 F 108 H 18 115/61 98 09/28/20 07:20 42 L 09/28/20 03:41 97.5 F L 60 16 105/68 98 Laboratory Results Cardiac enzymes negative x3. CBC normal. Normal electrolytes, creatinine 1.0. Diagnostic Findings Chest x-ray unremarkable. Stress echocardiogram as noted in HPI. Normal LV systolic function with no significant valvular disease. PG Care Time/CCT Total # of Minutes Spent Total Time Spent with Patient: Total time spent is greater than 50% in coordination of care (as documented) at patient's floor/unit and/or counseling patient: Coding Level of Care Code 35780 Inpt Consult Level 3 Diagnoses Precordial chest pain R07.2 Hypertension I10 Left-sided chest wall pain R07.89
--- NOTE | 2020-09-28 15:06 | Electrocardiogram Report ---
Test Reason : Blood Pressure : / mmHG Vent. Rate : 070 BPM Atrial Rate : 070 BPM P-R Int : 156 ms QRS Dur : 090 ms QT Int : 372 ms P-R-T Axes : 031 077 052 degrees QTc Int : 401 ms Normal sinus rhythm Normal ECG When compared with ECG of 13-AUG-2014 01:21, No significant change was found Confirmed by Landen Woodall ([id number]) on 09/28/2020 3:05:56 PM Referred By: REFERRED SELF Confirmed By:Landen Woodall
== END 2020-09-28 10:45 | disposition home or self-care (01) ==
LOC: ED 16:29 → 2E 16:29 → SUATTDRO 20:18 → 2E 20:48